=== PATIENT | male | born 2000 ===

== ENCOUNTER 2020-02-19 07:52 | Emergency (ER) | payer MEDICAID, OTHER ==
[~2020-02-19] VITALS: Ht 177 cm; Wt 90.0 kg
--- NOTE | 2020-02-19 09:26 | NUR ---
SWAB BY DR CHILEL
[2020-02-19] MEDS ORDERED: LIDOCAINE 1% INJ 20 ML 20 ML VIAL INJ ONE (09:30)
[2020-02-19] MEDS ORDERED: AZITHROMYCIN 250 MG TAB (ZITHROMAX) PO ONE (09:30)
[2020-02-19] MEDS ORDERED: cefTRIAXone 250 MG/ML vial (IM ONLY) IM ONE (09:30)
[2020-02-19 09:34] LABS: BILIRUBIN,URINE NEGATIVE (NEGATIVE); CLARITY,URINE CLEAR; COLOR,URINE YELLOW; GLUCOSE, URINE (UA) NEGATIVE (NEGATIVE); KETONES,URINE NEGATIVE (NEGATIVE); LEUKOCYTE ESTERASE ,URINE NEGATIVE (NEGATIVE); NITRITE,URINE NEGATIVE (NEGATIVE); PH,URINE 5.5 (5-9); PROTEIN,URINE NEGATIVE (NEGATIVE)
--- NOTE | 2020-02-19 09:40 | ED GU-Male ---
General Chief Complaint: Male Reproductive Stated Complaint: POSSIBLE STI;NO SYMPTOMS Nursing Triage Note: PT CO OF SMALL AREA OF RASH ON GENITAL AREA, STATES WONDER IF MAY HAVE STD. STATES WAS SEXUALLY ACTIVE 01/18/20. DID NOT NOTICE AREA UNTIL THIS AM. PT STATES DID NOT USE CONDUM Source: patient Exam Limitations: no limitations History of Present Illness Date Seen by Provider: Feb 19, 2020 Time Seen by Provider: 09:00 Initial Comments Patient arrives to the ER by private conveyance with chief complaint of a lesion on the distal end of the penis that started today. It's only painful if he touches it. No discharge. No discharge from the urethra no dysuria no fever chills cough or history of STD. He had such, course yesterday with a woman for the first time with that person. It's been a few months since she's had i ntercourse prior to that. He is not in a monogamous relationship right now. He has no other significant medical history. Allergies and Home Medications Allergies Coded Allergies: No Known Drug Allergies (Unverified , 02/19/20) Patient Home Medication List Home Medication List Reviewed: Yes Review of Systems Review of Systems Constitutional: No chills, No diaphoresis EENTM: No ear discharge, No ear pain Respiratory: No cough, No short of breath Cardiovascular: No chest pain, No palpitations Gastrointestinal: No abdominal pain, No nausea Genitourinary: denies burning, denies dysuria Musculoskeletal: No back pain, No joint pain Past Dcvfebh-Gjxmrg-Tttmep Hx Patient Social History Alcohol Use: Denies Use Recreational Drug Use: No Smoking Status: Never a Smoker Recent Foreign Travel: No Contact w/Someone Who Travel: No Recent Infectious Disease Expo: No Recent Hopitalizations: No (DENIES MEDICAL HX) Physical Abuse: No Sexual Abuse: No Physical Exam Vital Signs Vital Signs - First Documented 02/19/20 08:44 Temp 36.8 Pulse 59 Resp 18 B/P (MAP) 149/94 (112) Pulse Ox 100 Capillary Refill : Less Than 3 Seconds Height, Weight, BMI Height: '" Weight: lbs. oz. kg; 28.00 BMI Method: General Appearance: WD/WN, no apparent distress HEENT: PERRL/EOMI, pharynx normal Neck: non-tender, normal inspection Cardiovascular: normal peripheral pulses, regular rate, rhythm Respiratory: no respiratory distress, no accessory muscle use Neurologic/Psychiatric: alert, normal mood/affect Skin: other (1 cm x 2 cm shallow ulceration on the distal penis with mucopurulent Discharge) Progress/Results/Core Measures Suspected Sepsis Recent Fever Within 48 Hours: No Infection Criteria Present: None New/Unexplained Altered Menta: No Sepsis Screen: No Definite Risk SIRS Temperature: Pulse: 59 Respiratory Rate: 18 Blood Pressure 149 /94 Mean: 112 Results/Orders Lab Results Laboratory Tests Test 02/19/20 09:26 Range/Units Urine Color YELLOW Urine Clarity CLEAR Urine pH 5.5 5-9 Urine Specific Clio >=1.030 1.016-1.022 Urine Protein NEGATIVE NEGATIVE Urine Glucose (UA) NEGATIVE NEGATIVE Urine Ketones NEGATIVE NEGATIVE Urine Nitrite NEGATIVE NEGATIVE Urine Bilirubin NEGATIVE NEGATIVE Urine Urobilinogen 0.2 < = 1.0 MG/DL Urine Leukocyte Esterase NEGATIVE NEGATIVE Urine RBC (Auto) NEGATIVE NEGATIVE Urine RBC RARE /HPF Urine WBC 5-10 H /HPF Urine Squamous Epithelial Cells 0-2 /HPF Urine Crystals NONE /LPF Urine Bacteria FEW H /HPF Urine Casts NONE /LPF Urine Mucus NEGATIVE /LPF Urine Culture Indicated YES My Orders Orders - ALY CHILEL Edson Dna Urine Test (02/19/20 09:26) Chlamydia Trachomatis Urine (02/19/20 09:26) Ua Culture If Indicated (02/19/20 09:26) Ceftriaxone For Im Use (Rocephin For Im (02/19/20 09:30) Azithromycin Tablet (Zithromax Tablet) (02/19/20 09:30) Lidocaine 1% Inj 20 Ml (Xylocaine 1% Inj (02/19/20 09:30) Herpes Simplex Culture (02/19/20 09:28) Urine Culture (02/19/20 09:26) Medications Given in ED Current Medications Medications Dose Ordered Sig/Konrad Route Start Time Stop Time Status Last Admin Dose Admin Azithromycin 1,000 mg ONCE ONCE PO 02/19/20 09:30 02/19/20 09:31 DC 02/19/20 09:45 1,000 MG Ceftriaxone Sodium 250 mg ONCE ONCE IM 02/19/20 09:30 02/19/20 09:31 DC 02/19/20 09:45 250 MG Lidocaine HCl 0.9 ml ONCE ONCE INJ 02/19/20 09:30 02/19/20 09:31 DC 02/19/20 09:45 0.9 ML Vital Signs/I&O 02/19/20 08:44 Temp 36.8 Pulse 59 Resp 18 B/P (MAP) 149/94 (112) Pulse Ox 100 Capillary Refill : Less Than 3 Seconds Blood Pressure Mean: 112 Progress Note : Time: 10:06 Progress Note Suspect the urinalysis reflects a STI. He has received 250 mg IM Rocephin and a gram of azithromycin. We have sent off test. Encourage him to follow-up with primary care. Departure Impression Primary Impression: Sexually transmitted disease Disposition: HOME, SELF-CARE Condition: Stable Departure-Patient Inst. Decision time for Depature: 10:01 Patient Instructions: LOCAL PHYSICIAN LIST, Sexually-Transmitted Diseases (DC) Add. Discharge Instructions: Drink plenty of fluids. The lesion should heal on its own over the next week. I'll up with a primary care doctor if you're not seeing improvement in your symptoms. We should have the results back in the next 2-3 days and we will call you if they are positive. Alternatively you can follow-up with the health department for STI concerns. All discharge instructions reviewed with patient and/or family. Voiced understanding. LAY CHILEL Feb 19, 2020 09:40
[2020-02-19 09:49] LABS: BACTERIA,URINE FEW /HPF; RBC,URINE RARE /HPF; SQUAMOUS EPITHELIAL CELL,UR 0-2 /HPF
[2020-02-19 10:11] VITALS: BP 149/94
== END 2020-02-19 10:11 | disposition home or self-care (01) ==
LOC: ER 07:53
DX: A64 Unspecified sexually transmitted disease (principal)
CPT/HCPCS: 36415; 81000; 87088; 87254; 87491; 87591; 99284